=== PATIENT | male | born 1950 ===

== ENCOUNTER 2017-04-08 09:24 | Outpatient (CLI) | payer OTHER ==
[~2017-04-08] VITALS: Ht 167.6 cm; Wt 68.9 kg
== END 2017-04-08 09:45 | disposition home or self-care (01) ==
LOC: OFIC 805 09:24
DX: H61.22 Impacted cerumen, left ear (principal); H60.8X2 Other otitis externa, left ear; H93.12 Tinnitus, left ear

== ENCOUNTER 2017-12-23 12:32 | Outpatient (CLI) | payer OTHER ==
[~2017-12-23] VITALS: Ht 152.4 cm; Wt 68.9 kg
== END 2017-12-23 12:50 | disposition home or self-care (01) ==
LOC: OFIC 805 12:32
DX: H61.22 Impacted cerumen, left ear (principal); H93.13 Tinnitus, bilateral

== ENCOUNTER 2018-05-21 13:21 | Outpatient (CLI) | payer OTHER | END 2018-05-21 13:33 | disposition home or self-care (01) | LOC: OFIC 805 13:21 | DX: H60.8X2 Other otitis externa, left ear (principal) ==

== ENCOUNTER 2018-06-04 09:07 | Outpatient (CLI) | payer OTHER ==
[~2018-06-04] VITALS: Ht 152.4 cm; Wt 68.0 kg
== END 2018-06-04 09:15 | disposition home or self-care (01) ==
LOC: OFIC 805 09:07
DX: H93.13 Tinnitus, bilateral (principal); K13.29 Other disturbances of oral epithelium, including tongue

== ENCOUNTER 2019-11-16 08:57 | Outpatient (CLI) | payer OTHER | END 2019-11-16 16:48 | disposition home or self-care (01) | LOC: OFIC 805 08:57 | PROVIDERS: ATTEND Otolaryngology | DX: R09.82 Postnasal drip (principal); R09.81 Nasal congestion; J34.3 Hypertrophy of nasal turbinates ==

== ENCOUNTER 2019-12-28 09:14 | Outpatient (CLI) | payer OTHER ==
[2019-12-28] MEDS ORDERED: PEPCID40 MG PO (09:53)
[2019-12-28] MEDS ORDERED: AZELASTINE HCL6 ML OP (09:54)
== END 2019-12-28 10:20 | disposition home or self-care (01) ==
LOC: OFIC 805 09:14
PROVIDERS: ATTEND Otolaryngology
DX: J30.89 Other allergic rhinitis (principal); J34.3 Hypertrophy of nasal turbinates; R09.82 Postnasal drip; R09.81 Nasal congestion; H91.8X3 Other specified hearing loss, bilateral